=== PATIENT | male | born 1980 | race Caucasian/White ===

== ENCOUNTER 2019-01-23 19:50 | Emergency (ER) | payer OTHER ==
[2019-01-23 19:57] VITALS: BP 133/87; PULSE 97; TEMP 98.4; BMI 28.7
--- NOTE | 2019-01-23 20:39 | PDOC ---
History of Present Illness - General Chief Complaint: Injury Stated Complaint: FALL/INJURY Time Seen by Provider: 01/23/19 20:18 History Source: Patient Exam Limitations: No Limitations Past History - Travel Traveled outside of the country in the last 30 days: No Close contact w/someone who was outside of country & ill: No - Past Medical History Allergies/Adverse Reactions: Allergies Allergy/AdvReac Type Severity Reaction Status Date / Time No Known Allergies Allergy Verified 01/23/19 19:54 Home Medications: Ambulatory Orders Albuterol Sulfate [Proventil HFA Inhaler -] 1 - 2 inh PO QID PRN 09/23/12 Asthma: Yes COPD: No - Immunization History Immunization Up to Date: No - Psycho Social/Smoking Cessation Hx Smoking Status: Yes Smoking History: Never smoked Years of Tobacco Use: 0 Have you smoked in the past 12 months: No Number of Cigarettes Smoked Daily: 2 Cigars Per Day: 0 Hx Alcohol Use: Yes Drug/Substance Use Hx: No Review of Systems - Review of Systems Able to Perform ROS?: Yes Comments:: 01/23/19 20:51 CONSTITUTIONAL: Absent: fever, chills, diaphoresis, generalized weakness, malaise, loss of appetite HEENT: Absent: rhinorrhea, nasal congestion, throat pain, throat swelling, difficulty swallowing, mouth swelling, ear pain, eye pain, visual Changes CARDIOVASCULAR: Absent: chest pain, loss of consciousness, palpitations, irregular heart rate, peripheral edema RESPIRATORY: Absent: cough, shortness of breath, dyspnea with exertion, orthopnea, wheezing, stridor, hemoptysis GASTROINTESTINAL: Absent: abdominal pain, abdominal distension, nausea, vomiting, diarrhea, constipation, melena, hematochezia GENITOURINARY: Absent: dysuria, frequency, urgency, hesitancy, hematuria, flank pain, genital pain MUSCULOSKELETAL: Absent: myalgia, arthralgia, joint swelling SKIN: Present: Abrasions Absent: rash, itching, pallor HEMATOLOGIC/IMMUNOLOGIC: Absent: easy bleeding, easy bruising, lymphadenopathy, frequent infections ENDOCRINE: Absent: unexplained weight gain, unexplained weight loss, heat intolerance, cold intolerance NEUROLOGIC: Absent: headache, focal weakness or paresthesias, dizziness, unsteady gait, seizure, mental status changes, bladder or bowel incontinence PSYCHIATRIC: Absent: anxiety, depression, suicidal or homicidal ideation, hallucinations. Is the patient limited Jordanian proficient: No *Physical Exam - Vital Signs Last Vital Signs Temp Pulse Resp BP Pulse Ox 98.4 F 97 H 18 133/87 95 01/23/19 19:55 01/23/19 19:55 01/23/19 19:55 01/23/19 19:55 01/23/19 19:55 - Physical Exam Comments: 01/23/19 20:51 GENERAL: The patient is awake, alert, and fully oriented, in no acute distress. HEAD: Normal with no signs of trauma. EYES: Pupils equal, round and reactive to light, extraocular movements intact, sclera anicteric, conjunctiva clear. EXTREMITIES: Normal range of motion, no edema. NEUROLOGICAL: Normal speech, normal gait. PSYCH: Normal mood, normal affect. SKIN: Deep abrasions to the right third fourth and fifth fingers. Deep abrasion approximately the measure of a silver dollar to the right patella. Minor abrasions underneath the larger abrasion on the R knee. Warm, Dry, normal turgor, no rashes or lesions noted. Procedures - Laceration/Wound Repair Right Dorsal 3rd digit Wound Length: to 2.5 cm Wound Explored: clean, no foreign body present Wound's Depth, Shape: superficial, linear Irrigated w/ Saline: Yes Betadine Prep: Yes Anesthesia: 1% Lidocaine Amount of Anesthetic (ccs): 3 (digital block) Wound Debrided: minimal Wound Repaired With: Sutures Suture Size/Type: 4:0 Number of Sutures: 2 (simple interrupted) Sterile Dressing Applied: Yes Medical Decision Making - Medical Decision Making 01/23/19 20:53 Patient is a 38-year-old male no past medical history presents to the ER with abrasions to his right hand and right knee. He states he is taking out the trash when he slipped and fell on the sidewalk. He denies hitting his head or losing consciousness. He notes that his last tetanus shot was 4 years ago. Denies lightheadedness, dizziness, headache, shortness of breath and chest pain , numbness and tingling and weakness the affected extremities. A/P: Abrasions See exam for findings Wounds were cleaned with normal saline X-ray of the right hand taken due to the severity of abrasions, no fractures identified Tetanus up-to-date R 3rd finger wound repaired with 2 simple interrupted sutures. See procedure note. R knee cleaned and sterile dressing placed. DC home with suture return precautions I discussed the physical exam findings, ancillary test results and final diagnoses with the patient. I answered all of the patient's questions. The patient was satisfied with the care received and felt comfortable with the discharge plan and treatment plan. The Patient agrees to follow up with the primary care physician/specialist within 24-72 hours. Return precautions were given. Discharge - Discharge Information Problems reviewed: Yes Clinical Impression/Diagnosis: Laceration, Abrasion Condition: Stable Disposition: HOME - Admission No - Follow up/Referral Referrals: Phillip Jolly MD [Primary Care Provider] - - Patient Discharge Instructions Patient Printed Discharge Instructions: DI for Laceration Repair -- Simple, DI for Abrasion Additional Instructions: You had your cut fixed today with stitches. Please return in 5-7 days to have your stitches removed. Keep the wounds dry for 24 hours. Wear the splint to keep from bending your finger. You may take it off to shower. Your tetanus shot is up to date. Avoid soaking the hand . Keep it dry when showering. Please keep the area clean and pat dry. You may use bacitracin once a day. You may take Tylenol or Motrin as needed for pain. Return to the emergency department sooner if you have area of redness around the site, purulent drainage, fevers, or have any changes in your symptoms. - Post Discharge Activity
[2019-01-23] MEDS ORDERED: BACITRACIN 15 GM TUBE TOPICAL OINTMENT TP ONE (21:38)
== END 2019-01-23 22:18 | disposition home or self-care (01) ==
LOC: JERFT 19:50
PROC: 0HQFXZZ Repair Right Hand Skin, External Approach (ICD-10-PCS; principal; 2019-01-23)
DX: S61.212A Laceration without foreign body of right middle finger without damage to nail, initial encounter (principal); S60.511A Abrasion of right hand, initial encounter; S80.211A Abrasion, right knee, initial encounter; W18.39XA Other fall on same level, initial encounter; Y93.89 Activity, other specified; Y92.038 Other place in apartment as the place of occurrence of the external cause; Y99.8 Other external cause status
CPT/HCPCS: 12001-25; 73130-TC-RT-FY; 99281-25

== ENCOUNTER 2019-02-01 11:49 | Emergency (ER) | payer OTHER ==
--- NOTE | 2019-02-01 11:59 | PDOC ---
Suture Removal/Wound Check HPI - History of Present Illness Stated Complaint: STITCHES REMOVAL Time Seen by Provider: 02/01/19 11:53 History Source: Yes: Patient Exam Limitations: Yes: No Limitations [facility] Date of Last ED visit: 01/23/19 - Previous ED Treatment Type of procedure performed on last visit: Yes: Laceration Repair Tetanus Immunization: Yes: Up to Date Past History - Past Medical History Allergies/Adverse Reactions: Allergies Allergy/AdvReac Type Severity Reaction Status Date / Time No Known Allergies Allergy Verified 02/01/19 12:01 Home Medications: Ambulatory Orders Albuterol Sulfate [Proventil HFA Inhaler -] 1 - 2 inh PO QID PRN 09/23/12 Clindamycin [Cleocin -] 150 mg PO Q8H #21 capsule 02/01/19 Clindamycin [Cleocin -] 300 mg PO TID #21 capsule 02/01/19 Asthma: Yes COPD: No - Immunization History Immunization Up to Date: No - Psycho Social/Smoking Cessation Hx Smoking Status: Yes Smoking History: Never smoked Years of Tobacco Use: 0 Have you smoked in the past 12 months: No Number of Cigarettes Smoked Daily: 2 Cigars Per Day: 0 Hx Alcohol Use: Yes Drug/Substance Use Hx: No Suture Removal/Wound Check PE - Physical Exam Laceration/Wound Check Symptoms: reports: None *Review of Systems - Review of Systems Able to Perform ROS?: Yes Constitutional: No: Symptoms Reported HEENTM: No: Symptoms Reported Respiratory: No: Symptoms reported Cardiac (ROS): No: Symptoms Reported ABD/GI: No: Symptoms Reported : No: Symptoms Reported Musculoskeletal: No: Symptoms Reported Integumentary: Yes: Symptoms Reported Neurological: No: Symptoms reported Endocrine: No: Symptoms Reported Hematologic/Lymphatic: No: Symptoms Reported *Physical Exam - Physical Exam General Appearance: Yes: Appropriately Dressed. No: Apparent Distress Respiratory/Chest: positive: Lungs Clear, Normal Breath Sounds. negative: Respiratory Distress, Accessory Muscle Use Cardiovascular: positive: Regular Rhythm, Regular Rate. negative: Murmur Gastrointestinal/Abdominal: positive: Normal Bowel Sounds, Soft. negative: Tender Integumentary: positive: Other (Patient presents to right anterior knee with surrounding erythema and scant drainage present. Mild tenderness upon palpation. Full range of motion of the knee noted. Neurovascularly intact) Medical Decision Making - Medical Decision Making 02/01/19 12:01 A/P: 38-year-old male here for suture removal and right knee abrasion Anterior right knee with abrasion present. Mild erythema surrounding the abrasion with drainage present. 2 sutures present with well approximated wound. No signs or symptoms of infection around suture line to the right fourth digit 2 sutures removed without incident We will discharge patient home with prescription for clindamycin for infected abrasion I discussed the physical exam findings, ancillary test results and final diagnoses with the patient. I answered all of the patient's questions. The patient was satisfied with the care received and felt comfortable with the discharge plan and treatment plan. The patient will call their primary care physician within 24 hours to arrange follow-up and will return to the Emergency Department with any new, persistent or worsening symptoms. Discharge - Discharge Information Problems reviewed: Yes Clinical Impression/Diagnosis: Visit for suture removal Abrasion of knee, infected Qualifiers: Encounter type: initial encounter Laterality: right Qualified Code(s): S80.211A - Abrasion, right knee, initial encounter Condition: Stable Disposition: HOME - Admission No - Additional Discharge Information Prescriptions: Clindamycin [Cleocin -] 150 mg PO Q8H #21 capsule Clindamycin [Cleocin -] 300 mg PO TID #21 capsule - Follow up/Referral - Patient Discharge Instructions Additional Instructions: Rest, allow completion of healing May continue using bacitracin ointment until scabs are completely resolved Keep wound covered and out of the sun for at least one year as scar tissue will pickler helper and absorbable more sunlight causing a darker discoloration Take clindamycin 450 mg 3 times a day for the next 7 days. May use vitamin E, aloe, or other oils recommended for skin and scar healing - Post Discharge Activity
[2019-02-01 12:02] VITALS: BP 139/98; PULSE 63; TEMP 98.3; BMI 27.8
== END 2019-02-01 12:10 | disposition home or self-care (01) ==
LOC: JER 11:49
DX: Z48.817 Encounter for surgical aftercare following surgery on the skin and subcutaneous tissue (principal); Z48.02 Encounter for removal of sutures; S80.211A Abrasion, right knee, initial encounter; L08.9 Local infection of the skin and subcutaneous tissue, unspecified; X58.XXXA Exposure to other specified factors, initial encounter; Y93.89 Activity, other specified; Y92.89 Other specified places as the place of occurrence of the external cause; Y99.8 Other external cause status
CPT/HCPCS: 99281-25